=== PATIENT | female | born 1985 | race Caucasian/White ===

== ENCOUNTER 2017-09-27 22:07 | Emergency (ER) | payer SELFPAY ==
[~2017-09-27] VITALS: Ht 175.3 cm; Wt 72.7 kg
[~2017-09-27 22:07] MED LIST: AUGMENTIN875 MG PO; FLEXERIL10 MG PO; MIRENA52 MG; NAPROXEN500 MG PO; NOHOMEMEDS
[2017-09-27 22:55] LABS: HEMATOCRIT 39.7 % (36.0-46.0); HEMOGLOBIN 13.4 G/DL (11.9-15.5); MCH 29.3 PG (29.0-34.0); MCHC 33.8 G/DL (30.0-36.0); MCV 86.9 FL (83-99); PLATELET COUNT 266 K/uL (156-360); RBC DIS.WIDTH-CV 13.1 % (11.8-14.6); RBC DIS.WIDTH-SD 41.4 % (39-53); RED BLOOD COUNT 4.57 M/uL (3.80-5.20)
[2017-09-27 23:05] LABS: CHLORIDE 108 mEq/L (99-109); SODIUM 141 mEq/L (136-147)
[2017-09-27 23:06] LABS: GLUCOSE 106 mg/dL (70-99)
[2017-09-27 23:10] LABS: CREATININE 0.7 mg/dL (0.6-1.3); GFR ESTIMATE (CALCULATED) > 59 mL/min/
[2017-09-27 23:11] LABS: UREA NITROGEN (BUN) 11 mg/dL (9-23)
[2017-09-27 23:16] LABS: TROP-I INTERPRETATION NEGATIVE; TROPONIN-I < 0.01 ng/mL (0.0-0.30)
[2017-09-28 00:39] LABS: D-DIMER ELISA < 150.00 ng/mLDDU (<230)
[2017-09-28 00:40] LABS: ALBUMIN 4.1 g/dL (3.2-4.8)
[2017-09-28 00:43] LABS: TOTAL PROTEIN 6.7 g/dL (6.4-8.3)
[2017-09-28 00:45] LABS: TOTAL BILIRUBIN 0.3 mg/dL (0.0-1.0)
[2017-09-28 00:46] LABS: ALKALINE PHOSPHATASE 72 IU/L (3-129)
[2017-09-28 00:48] LABS: AST (GOT) 20 IU/L (2-34); DIRECT BILIRUBIN 0.1 mg/dL (0.0-0.3)
[2017-09-28 00:49] LABS: ALT (GPT) 15 IU/L (3-49)
[2017-09-28 00:50] LABS: LIPASE 38 U/L (1.0-51.0)
[2017-09-28 01:28] VITALS: BP 114/88
== END 2017-09-28 01:31 | disposition home or self-care (01) ==
LOC: EME 22:07
DX: R07.89 Other chest pain (principal); R94.31 Abnormal electrocardiogram [ECG] [EKG]; F17.200 Nicotine dependence, unspecified, uncomplicated; Z97.5 Presence of (intrauterine) contraceptive device
CPT/HCPCS: 71046; 80048; 80076; 83690; 84484; 85027; 85379; 93005; 99281; 99284